=== PATIENT | male | born 1940 | race Caucasian/White ===

== ENCOUNTER 2018-01-05 15:15 | Outpatient (CLI) | payer MEDICARE, OTHER, SELFPAY ==
--- NOTE | 2018-01-05 14:31 | DI.RAD_ITS ---
SYMPTOMS/DIAGNOSIS: COUGH AND LOW O2 SATURATION, J98.01, ACUTE BRONCHOSPASM PA AND LATERAL CHEST: Comparison is made with April,. The heart size is normal. The aorta is tortuous. There is linear scarring at the left lung base. The lungs are otherwise clear. Degenerative changes are seen in the thoracic spine. IMPRESSION: No acute abnormality.
== END 2018-01-05 15:35 ==
PROVIDERS: PCP Family Medicine; Visit Provider Internal Medicine
DX: R05 Cough (principal); J98.01 Acute bronchospasm; R09.89 Other specified symptoms and signs involving the circulatory and respiratory systems
CPT/HCPCS: 71046

== ENCOUNTER 2018-06-03 00:44 | Outpatient (CLI) | payer MEDICARE, OTHER, SELFPAY ==
--- NOTE | 2018-06-03 06:59 | MERGEMPI_ITS ---
*[facility]* *[facility]* [address] [place] [address] Myocardial Perfusion Imaging - SPECT Matt protocol Date of study: 06/03/2018 *PATIENT PRESENTATION* Height: 175.3cm (69in) Blood Pressure: Weight: 80kg (176lb) BSA: 1.99m^2 Referring physician: Richie Cadena Ordering physician: Oscar Tabares Impressions: - Normal myocardial perfusion and contraction after maximal exercise. - In this patient with moderate risk Appiah treadmill score the perfusion scan being normal predicts a low risk of cardiac events. Summary: 1. Myocardial perfusion imaging: No myocardial perfusion defects noted. 2. The calculated left ventricular ejection fraction after stress: 68%. LV global systolic function is normal. No left ventricular regional motion abnormality. 3. Stress ECG conclusions: The stress ECG is negative. Appiah treadmill score: 4. This score predicts a moderate risk of cardiac events. 4. Stress: The target heart rate was achieved. The heart rate response to stress is normal. There is a normal resting blood pressure with an appropriate response to stress. The patient experienced no chest pain during stress. Exercise capacity is moderately diminished for age. 5. Treadmill exercise testing was performed using the Matt protocol. The patient exercised for 4 min 2 sec, to protocol stage 2, to a maximal work rate of 5.9mets. Exercise was terminated due to fatigue. Indication: R06.09, Appropriate Use Criteria: A (Appropriate). History: REASON FOR TESTING: APPROXIMATELY ONE WEEK AGO PATIENT NOTICED INCREASED SOB AT WITH SHOVELING AND CLIMING STAIRS. HE ALSO NOTED SOB UPON WAKING A FEW DAYS AGO. HE DENIES CHEST PAIN/PRESSURE AND SOB UPON ARRIVAL TO TESTING TODAY. SIGNIFICANT PAST MEDICAL HISTORY: GERD. SMOKING STATUS: NEVER. EXERCISE ROUTINE: SWIMS 4 TO 5 TIMES A WEEK FOR 40 MINUTES PER TIME. Risk factors: Family history of coronary artery disease. Dyslipidemia. Cholesterol: 208mg/dl. HDL: 67mg/dl. LDL: 124mg/dl. Triglycerides: 81mg/dl. ALLERGIES: SULFAMETHOXAZOLE, TRIMETHOPRIM. MEDICATIONS: ASPIRIN 81 MG DAILY, VITAMIN D 1000 UNITS DAILY, MULTIVITAMIN DAILY, CALCIUM CARBONATE/VITAMIN D 600 MG/800 UNITS DAILY, VITAMIN B6 50 MG DAILY, LORAZEPAM 1 MG HS, VITAMIN D 1000 UNITS DAILY. Imaging Technique: Protocol: Matt protocol. Acquisition: Gated SPECT; 1 day - rest/stress. The patient was imaged in the supine position. Attenuation correction used. Isotope administration: - Rest. Tc[99m]-sestamibi. Dose: 9.6mCi. Injection time: 08:30 AM. Injection to stress time: 00:45. - Stress. Tc[99m]-sestamibi. Dose: 30.1mCi. Injection time: 11:55 AM. 1-2 min before end of exercise Baseline ECG: SINUS RHYTHM. HR 65 BPM. Normal ECG. Stress protocol: + +---+ + !Stage !HR !BP (mmHg) ! + +---+ + !Baseline supine !65 !120/70 (87)! + +---+ + !Baseline standing !84 !106/70 (82)! + +---+ + !Stage I; 1.7mph, 10degrees; 3 min!128!140/70 (93)! + +---+ + !Peak stress !138! ! + +---+ + !Recovery; 1 min !126!108/54 (72)! + +---+ + !Recovery; 3 min !71 !150/74 (99)! + +---+ + !Recovery; 6 min !75 !130/70 (90)! + +---+ + !Recovery; 9 min !72 !120/68 (85)! + +---+ + * Stress results: STRESS TEST ENDED IN 4 MINUTES 2 SECONDS DUE TO FATIGUE. NORMAL HEART RATE RESPONSE TO EXERCISE. ABNORMAL DROP IN SYSTOLIC BLOOD PRESSURE OF42 mm/Hg UPON IMMEDIATE RECOVERY. MAX HEART RATE: 138 96 % OF TARGET HEART RATE. MET'S: 5.87 RARE PVCs. NO ANGINA. NO SIGNIFICANT ST SEGMENT CHANGES. MODERATELY DIMINISHED FUNCTIONAL CAPACITY. Maximal heart rate during stress was 138bpm (97% of maximal predicted heart rate). The maximal predicted heart rate was 143bpm. The target heart rate was achieved. The heart rate response to stress is normal. There is a normal resting blood pressure with an appropriate response to stress. The rate-pressure product for the peak heart rate and blood pressure was 88004fj Hg/min. The patient experienced no chest pain during stress. Exercise capacity is moderately diminished for age. Stress ECG: The stress ECG is negative. Appiah treadmill score: 4. This score predicts a moderate risk of cardiac events. Myocardial perfusion: Imaging information: gated. The image quality was excellent. Left ventricular size is normal. No myocardial perfusion defects noted. Ventricular Function (Wall Motion): The calculated left ventricular ejection fraction after stress: 68%. LV global systolic function is normal. No left ventricular regional motion abnormality. Study data: Richie Cadena MD supervised and was readily available during the procedure. This study was interpreted by [facility]. Study status: Routine. Consent: The risks, benefits, and alternatives to the procedure were explained to the patient and informed consent was obtained. Procedure: Initial setup. A baseline ECG was recorded. Surface ECG leads and manual cuff blood pressure measurements were monitored. Heart sounds: Normal. Lung sounds: Normal. Treadmill exercise testing was performed using the Matt protocol. The patient exercised for 4 min 2 sec, to protocol stage 2, to a maximal work rate of 5.9mets. Exercise was terminated due to fatigue. Study completion: All catheters inserted during the procedure were removed. The patient tolerated the procedure well and was discharged from the lab. Discharge: The patient left the laboratory in stable condition. Birthdate: Patient birthdate: 1940. Sex: Gender: male. Study date: Study date: 06/03/2018. Study time: 00:01 AM. Signature Documentation: - The imaging portion of this study was interpreted by [employer]or Richie Cadena MD. - The Stress ECG portion of this study was interpreted by Richie Cadena MD. Electronically signed by Richie Cadena 06/03/2018 13:40
== END 2018-06-03 01:04 ==
PROVIDERS: PCP Family Medicine; Visit Provider Family Medicine
DX: R06.02 Shortness of breath (principal); R06.09 Other forms of dyspnea; K21.9 Gastro-esophageal reflux disease without esophagitis; E78.5 Hyperlipidemia, unspecified; Z82.49 Family history of ischemic heart disease and other diseases of the circulatory system
CPT/HCPCS: 78452; 93016; 93018; 93017

== ENCOUNTER 2018-06-05 01:47 | Outpatient (CLI) | payer MEDICARE, OTHER, SELFPAY ==
[2018-06-05 11:22] LABS: HCT 44.3 % (40.0-50.0); HGB 14.5 g/dL (13.5-17.5); Mean Corp. HGB Concentration 32.7 g/dL (32.0-36.0); Mean Corpuscular Hemoglobin 28.9 pg (27.0-33.0); Mean Corpuscular Volume 88.2 fL (80-95); Mean Platelet Volume 10.9 fL (8.0-11.0); Platelet Count 224 x1000/uL (130-400); RBC 5.02 m/cumm (4.50-6.00); RBC Distribution Width 15.1 % (11.8-14.1); White Blood Cell Count 7.09 k/cumm (4.4-10.8)
[2018-06-05 11:42] LABS: Hemoglobin A1C 5.8 % (4.5-6.2)
[2018-06-05 11:54] LABS: Anion Gap 11.1 mmol/L (3-11); BUN 28 mg/dL (7-18); CO2 25.9 mmol/L (21.0-32.0); CREATININE 1.36 mg/dL (0.70-1.30); Calcium 8.8 mg/dL (8.5-10.1); Chloride 105 mmol/L (98-107); Cholesterol 192 mg/dL (50-200); Estimated GFR 50.81 (mL/min/1.73m2); Glucose 100 mg/dL (70-100); HDL Cholesterol 64 mg/dL (40-60); LDL CHOLESTEROL 109 mg/dL (<100); Potassium 4.4 mmol/L (3.5-5.1); Sodium 142 mmol/L (136-145); TSH (W/Ref FT4) 2.56 uIU/mL (0.358-3.74); Triglyceride 78 mg/dL (30-150)
== END 2018-06-05 02:07 ==
PROVIDERS: PCP Family Medicine; Visit Provider Family Medicine
DX: E78.5 Hyperlipidemia, unspecified (principal); R73.01 Impaired fasting glucose; E74.39 Other disorders of intestinal carbohydrate absorption; R00.0 Tachycardia, unspecified
CPT/HCPCS: 36415; 80048; 80061; 83721; 85027; 83036; 84443

== ENCOUNTER 2018-10-08 16:08 | Outpatient (CLI) | payer MEDICARE, OTHER, SELFPAY ==
[2018-10-08 18:41] LABS: ESR 11 MM/HR (1-20)
== END 2018-10-08 16:28 ==
PROVIDERS: PCP Family Medicine; Visit Provider Family Medicine
DX: R51 Headache (principal)
CPT/HCPCS: 36415; 85652

== ENCOUNTER 2018-10-15 00:41 | Outpatient (CLI) | payer MEDICARE, OTHER, SELFPAY ==
--- NOTE | 2018-10-15 13:49 | DI.US_ITS ---
SYMPTOMS/DIAGNOSIS: HEADACHE, R51, NUMBNESS OF RIGHT HAND, R20.0 CAROTID ULTRASOUND: The carotids are free of plaque. Antegrade flow is noted in the vertebrals. The velocity measurements suggest no evidence of significant carotid stenosis.
== END 2018-10-15 01:01 ==
PROVIDERS: PCP Family Medicine; Visit Provider Family Medicine
DX: R20.0 Anesthesia of skin (principal); R51 Headache
CPT/HCPCS: 93880

== ENCOUNTER 2019-04-26 10:11 | Outpatient (CLI) | payer MEDICARE, OTHER, SELFPAY ==
--- NOTE | 2019-04-26 15:19 | DI.RAD_ITS ---
EXAM: XR CHEST 2V PA AND LATERAL CLINICAL HISTORY: PERSISTENT COUGH R05. TECHNIQUE: 2D digital imaging was performed. COMPARISON: XR CHEST 2V PA LATERAL from 01/05/2018 FINDINGS: LUNGS: Clear. No pleural abnormality seen. HEART: Normal. MEDIASTINUM: Normal. OTHER FINDINGS:Normal. IMPRESSION: No acute pulmonary findings.
== END 2019-04-26 10:31 ==
PROVIDERS: PCP Family Medicine; Visit Provider Internal Medicine
DX: R05 Cough (principal)
CPT/HCPCS: 71046

== ENCOUNTER 2019-06-14 13:58 | Outpatient (CLI) | payer MEDICARE, OTHER, SELFPAY | END 2019-06-14 14:18 | PROVIDERS: PCP Family Medicine; Visit Provider Family Medicine | DX: R73.9 Hyperglycemia, unspecified (principal) | CPT/HCPCS: 36415; 83036 ==

== ENCOUNTER 2019-06-15 02:24 | Outpatient (CLI) | payer MEDICARE, OTHER, SELFPAY ==
[2019-06-15 17:07] LABS: ALT 37 U/L (16-63); AST 24 U/L (15-37); Anion Gap 7.8 mmol/L (3-11); BUN 30 mg/dL (7-18); CO2 30.2 mmol/L (21.0-32.0); CREATININE 1.35 mg/dL (0.70-1.30); Calcium 8.7 mg/dL (8.5-10.1); Chloride 106 mmol/L (98-107); Estimated GFR 51.11 (mL/min/1.73m2); Glucose 122 mg/dL (74-106); Potassium 4.1 mmol/L (3.5-5.1); Sodium 144 mmol/L (136-145)
== END 2019-06-15 02:44 ==
PROVIDERS: PCP Family Medicine; Visit Provider Family Medicine
DX: E03.9 Hypothyroidism, unspecified (principal); F34.9 Persistent mood [affective] disorder, unspecified
CPT/HCPCS: 36415; 80048; 84443; 84450; 84460

== ENCOUNTER 2020-02-25 01:52 | Outpatient (CLI) | payer MEDICARE, OTHER, SELFPAY ==
[2020-03-01 16:29] LABS: Factor V Leiden(R506Q) Mut Negative (Negative)
== END 2020-02-25 02:12 ==
PROVIDERS: PCP Family Medicine; Visit Provider Family Medicine
DX: D68.2 Hereditary deficiency of other clotting factors (principal); I87.2 Venous insufficiency (chronic) (peripheral); Z83.2 Family history of diseases of the blood and blood-forming organs and certain disorders involving the immune mechanism
CPT/HCPCS: 36415; 81241

== ENCOUNTER 2020-06-30 02:05 | Outpatient (CLI) | payer MEDICARE, OTHER, SELFPAY ==
[2020-06-30 12:27] LABS: MCH 28.6 pg (27.0-33.0); MCHC 31.8 % (32.0-36.0); MPV 11.1 fL (8.0-11.0); Platelet Count 201 10^3/uL (130-400); RBC 4.89 10^6/uL (4.36-5.78); RDW 14.8 % (11.8-14.1); WBC 7.57 10^3/uL (4.4-10.8)
[2020-06-30 12:39] LABS: ALT 32 U/L (16-63); AST 22 U/L (15-37); Albumin 3.6 g/dL (3.4-5.0); Alkaline Phosphatase 54 U/L (46-116); Anion Gap 6.7 mmol/L (3-11); BUN 27 mg/dL (7-18); Bilirubin, Total 0.4 mg/dL (0.2-1.0); CO2 31.3 mmol/L (21.0-32.0); CREATININE 1.3 mg/dL (0.70-1.30); Calcium 8.6 mg/dL (8.5-10.1); Chloride 108 mmol/L (98-107); Estimated GFR 53.25 (mL/min/1.73m2); Glucose 105 mg/dL (74-106); Potassium 4.2 mmol/L (3.5-5.1); Sodium 146 mmol/L (136-145); Total Protein 6.8 g/dL (6.4-8.2)
== END 2020-06-30 02:06 | disposition home or self-care (01) ==
LOC: LOS 02:05
PROVIDERS: PCP Family Medicine; Visit Provider Family Medicine
DX: D64.9 Anemia, unspecified (principal); R10.9 Unspecified abdominal pain
CPT/HCPCS: 36415; 80053; 85027

== ENCOUNTER 2021-01-31 19:08 | Outpatient (REF) | payer MEDICARE, OTHER, SELFPAY ==
[2021-02-02 12:07] LABS: COVID-19 RT-PCR UVMMC Result Negative (Negative)
== END 2021-01-31 19:09 | disposition home or self-care (01) ==
LOC: LBN 19:08
PROVIDERS: PCP Family Medicine; Visit Provider Nurse Practitioner Family
DX: Z20.822 Contact with and (suspected) exposure to COVID-19 (principal)
CPT/HCPCS: U0003; U0005

== ENCOUNTER 2021-07-11 02:44 | Outpatient (CLI) | payer MEDICARE, SELFPAY ==
[2021-07-11 07:23] LABS: HCT 42.8 % (40.0-50.0); HGB 13.6 g/dL (13.5-17.5); MCH 28.2 pg (27.0-33.0); MCHC 31.8 % (32.0-36.0); MCV 88.8 fL (80-95); MPV 9.6 fL (8.0-11.0); Platelet Count 229 10^3/uL (130-400); RBC 4.82 10^6/uL (4.36-5.78); RDW 14.2 % (11.8-14.1); RDW-SD 46.3 fL; WBC 7.61 10^3/uL (4.4-10.8)
[2021-07-11 08:16] LABS: ALT 30 U/L (16-63); AST 20 U/L (15-37); Albumin 3.8 g/dL (3.4-5.0); Alkaline Phosphatase 55 U/L (46-116); Anion Gap 6.6 mmol/L (3-11); BUN 28 mg/dL (7-18); Bilirubin, Total 0.5 mg/dL (0.2-1.0); CO2 29.4 mmol/L (21.0-32.0); CREATININE 1.5 mg/dL (0.70-1.30); Calcium 8.4 mg/dL (8.5-10.1); Calculated LDL 101 mg/dL (<100); Chloride 103 mmol/L (98-107); Cholesterol 181 mg/dL (<200); Estimated GFR 45.03 (mL/min/1.73m2); Glucose 92 mg/dL (74-106); HDL Cholesterol 65 mg/dL (40-60); Potassium 4.1 mmol/L (3.5-5.1); Sodium 139 mmol/L (136-145); Triglyceride 75 mg/dL (<150)
== END 2021-07-11 02:45 | disposition home or self-care (01) ==
LOC: LBO 02:44
PROVIDERS: PCP Family Medicine; Visit Provider Family Medicine
DX: R53.83 Other fatigue (principal); R10.9 Unspecified abdominal pain; E78.5 Hyperlipidemia, unspecified
CPT/HCPCS: 36415; 80053; 80061; 85027

== ENCOUNTER → 2021-07-20 02:11 | Outpatient (CLI) | payer MEDICARE, SELFPAY ==
--- NOTE | 2021-07-20 10:10 | DI.RAD_ITS ---
Exam(s) RF BARIUM SWALLOW EXAM: RF BARIUM SWALLOW CLINICAL HISTORY: ?? Hiatial Hernia,DYSPHAGIS, GERD TECHNIQUE: 2D and realtime digital imaging was performed. CONTRAST MATERIAL: Oral barium contrast was administered. COMPARISON: No exams were available for comparison FINDINGS: CHEST X-RAY: The heart and pulmonary vasculature are within normal limits. The lungs are clear. No pl eural effusion or pneumothorax is present. The bones are within normal limits for the patient's age. ESOPHAGRAM: The esophagus is patent with no evidence for erosions, fold thickening, or masses. The g astroesophageal junction shows smooth mild narrowing. There is mild dilatation of the esophagus prox imally. No definite mass is seen in this area. There is no irregularity of the wall. Tertiary cont ractions are identified. There was no gastroesophageal reflux. There was penetration during the exa mination but no brad aspiration. IMPRESSION: 1. Question of mild smooth narrowing at the gastroesophageal junction. No wall irregularity or ulcer ation is seen. There is mild dilatation of the esophagus proximally. Achalasia may be considered. Upper GI may be considered for further evaluation. 2. Mild penetration of the upper airway but no brad aspiration was identified during the examination . 3. No evidence of gastroesophageal reflux during the examination. RADIATION DOSE DELIVERED: khadar Miller=22.7 mGy
[2021-07-20] MEDS: Barium Sulfate 60% W/V 355 ML BTL PO (10:24)
[2021-07-20] MEDS: Simethicone/Sod Bicarb/Cit Ac, 4 gram PACKET 1 PACKET PO (10:26)
== END ==
PROVIDERS: PCP Family Medicine; Visit Provider Family Medicine
DX: R13.10 Dysphagia, unspecified (principal)
CPT/HCPCS: 74221; J3490

== ENCOUNTER 2021-07-24 03:14 | Outpatient (CLI) | payer MEDICARE, SELFPAY ==
[2021-07-24 16:20] LABS: Vitamin B12 1292 pg/mL (193-986)
== END 2021-07-24 03:15 | disposition home or self-care (01) ==
LOC: LBO 03:14
PROVIDERS: PCP Family Medicine; Visit Provider Family Medicine
DX: D64.9 Anemia, unspecified (principal)
CPT/HCPCS: 36415; 82607

== ENCOUNTER 2022-04-19 01:37 | Outpatient (CLI) | payer MEDICARE, SELFPAY ==
[2022-04-19] MEDS: Albuterol HFA 18 GM 200 PUFF INH IH (14:27)
[2022-04-19] MEDS: Inhaler, Assist Device 1 EACH MC (14:27)
--- NOTE | 2022-04-30 11:14 | W.PFT ---
Date of service: 04/19/22 Time of Service: 13:02 Pulmonary Function Test Result Requesting Provider Oscar Tabares Indications: GAYLE Interpretation Spirometry: Although the FEV1/FVC ratio is technically normal, airflow limitation is suggested by the flow volume curve and the volume time curve. There is no significant bronchodilator response. There is restrictive appearing spirometry. Lung Volumes: There is significant air trapping and hyperinflation. Diffusion Capacity: Normal diffusion Airway Pressure: Increased airways resistance Impression Likely mild airflow limitation with increased airways resistance, significant air trapping and a normal diffusion. This could represent asthma or early chronic bronchitis in the correct clinical context. The restrictive appearing spirometry is likely pseudo restriction, possibly effort related given the normal lung volumes and diffusion. Clinical Correlation therefore is recommended.
== END 2022-04-19 01:38 | disposition home or self-care (01) ==
LOC: RT 01:37
PROVIDERS: PCP Family Medicine; Visit Provider Family Medicine
DX: R94.2 Abnormal results of pulmonary function studies (principal); R06.09 Other forms of dyspnea; R06.02 Shortness of breath
CPT/HCPCS: 94060; 94726; 94729

== ENCOUNTER 2022-07-26 01:37 | Outpatient (CLI) | payer MEDICARE, SELFPAY ==
[2022-07-26 10:30] LABS: HCT 44.1 % (40.0-50.0); HGB 14.4 g/dL (13.5-17.5); MCH 28.9 pg (27.0-33.0); MCHC 32.7 % (32.0-36.0); MCV 88 fL (80-95); MPV 10.8 fL (8.0-11.0); Platelet Count 241 10^3/uL (130-400); RBC 4.99 10^6/uL (4.36-5.78); RDW 14.3 % (11.8-14.1); RDW-SD 45.9 fL
[2022-07-26 10:53] LABS: Anion Gap 6.9 mmol/L (3-11); BUN 36 mg/dL (7-18); CO2 29.1 mmol/L (21.0-32.0); CREATININE 1.6 mg/dL (0.70-1.30); Calcium 8.9 mg/dL (8.5-10.1); Calculated LDL 103 mg/dL (<100); Chloride 105 mmol/L (98-107); Cholesterol 192 mg/dL (<200); Estimated GFR 42.75 (mL/min/1.73m2); Glucose 112 mg/dL (74-106); HDL Cholesterol 76 mg/dL (40-60); Sodium 141 mmol/L (136-145); Triglyceride 68 mg/dL (<150)
[2022-07-26 12:14] LABS: Lab Add On Test DONE
[2022-07-26 14:46] LABS: Hemoglobin A1C 5.8 % (<5.7)
== END 2022-07-26 01:38 | disposition home or self-care (01) ==
LOC: LOS 01:37
PROVIDERS: PCP Family Medicine; Visit Provider Nurse Practitioner Family
DX: I10 Essential (primary) hypertension (principal); R73.9 Hyperglycemia, unspecified; N28.9 Disorder of kidney and ureter, unspecified; Z79.899 Other long term (current) drug therapy
CPT/HCPCS: 36415; 80048; 80061; 85027; 83036

== ENCOUNTER 2022-08-05 01:24 | Outpatient (CLI) | payer MEDICARE, SELFPAY ==
[2022-08-05 12:24] LABS: PHOSPHORUS 3.7 mg/dL (2.6-4.7)
[2022-08-05 12:49] LABS: Microalb ug/mg Crea 3.1 ug/mg Cr; Vitamin D 25 Total 92.5 ng/mL (30-100)
[2022-08-05 22:57] LABS: Parathyroid Hormone,Intact 45 pg/mL (19-88)
== END 2022-08-05 01:25 | disposition home or self-care (01) ==
LOC: LOS 01:24
PROVIDERS: PCP Family Medicine; Visit Provider Family Medicine
DX: E11.22 Type 2 diabetes mellitus with diabetic chronic kidney disease; N18.32 Chronic kidney disease, stage 3b
CPT/HCPCS: 36415; 82306; 82043; 82570; 83735; 83970; 84100

== ENCOUNTER 2023-01-29 08:11 | Outpatient (CLI) | payer MEDICARE, SELFPAY ==
[2023-01-29 10:38] LABS: HCT 44.4 % (40.0-50.0); HGB 14.6 g/dL (13.5-17.5); MCH 28.9 pg (27.0-33.0); MCHC 32.9 % (32.0-36.0); MCV 88 fL (80-95); MPV 10.6 fL (8.0-11.0); Platelet Count 266 10^3/uL (130-400); RBC 5.05 10^6/uL (4.36-5.78); RDW 14.3 % (11.8-14.1); RDW-SD 45.7 fL; WBC 9.77 10^3/uL (4.4-10.8)
[2023-01-29 10:56] LABS: ALT 31 U/L (16-63); AST 25 U/L (15-37); Albumin 3.7 g/dL (3.4-5.0); Alkaline Phosphatase 60 U/L (46-116); Anion Gap 9.1 mmol/L (3-11); BUN 34 mg/dL (7-18); Bilirubin, Total 0.3 mg/dL (0.2-1.0); CO2 25.9 mmol/L (21.0-32.0); CREATININE 1.3 mg/dL (0.70-1.30); Calcium 9.6 mg/dL (8.5-10.1); Chloride 103 mmol/L (98-107); Estimated GFR 54.85 (mL/min/1.73m2); Glucose 112 mg/dL (74-106); Potassium 4.1 mmol/L (3.5-5.1); Sodium 138 mmol/L (136-145); Total Protein 7.7 g/dL (6.4-8.2)
== END 2023-01-29 08:12 | disposition home or self-care (01) ==
LOC: LOS 08:12
PROVIDERS: PCP Family Medicine; Referring Provider Family Medicine; Visit Provider Family Medicine
DX: N18.32 Chronic kidney disease, stage 3b (principal); I10 Essential (primary) hypertension; G62.9 Polyneuropathy, unspecified; F41.8 Other specified anxiety disorders
CPT/HCPCS: 36415; 80053; 85027

== ENCOUNTER → 2023-01-29 10:26 | Outpatient (CLI) | payer MEDICARE, SELFPAY ==
--- NOTE | 2023-01-29 09:15 | DI.RAD_ITS ---
Exam(s) XR CHEST 2V PA LATERAL EXAM: XR CHEST 2V PA LATERAL CLINICAL HISTORY: recent pneumonia - eval for resolution J18.9 PNEUMONIA. TECHNIQUE: 2D digital imaging was performed. COMPARISON: CR,RF RF BARIUM SWALLOW from 07/20/2021 FINDINGS: 2 views: Heart size is normal. The mediastinum is not widened. Lungs are clear. No infiltrates nor pleural effusions. IMPRESSION: No acute pulmonary findings. DATA REPOSITORY: RADIATION DOSE DELIVERED:
== END ==
PROVIDERS: PCP Family Medicine; Visit Provider Family Medicine
DX: J18.9 Pneumonia, unspecified organism (principal)
CPT/HCPCS: 71046

== ENCOUNTER 2023-07-29 04:53 | Outpatient (CLI) | payer MEDICARE, SELFPAY ==
[2023-07-29 12:29] LABS: ALT 34 U/L (16-63); AST 25 U/L (15-37); Albumin 3.6 g/dL (3.4-5.0); Alkaline Phosphatase 56 U/L (46-116); Anion Gap 7.9 mmol/L (3-11); BUN 35 mg/dL (7-18); Bilirubin, Total 0.4 mg/dL (0.2-1.0); CO2 29.1 mmol/L (21.0-32.0); CREATININE 1.3 mg/dL (0.70-1.30); Calcium 8.7 mg/dL (8.5-10.1); Chloride 107 mmol/L (98-107); Estimated GFR 54.51 (mL/min/1.73m2); Glucose 76 mg/dL (74-106); Potassium 3.9 mmol/L (3.5-5.1); Sodium 144 mmol/L (136-145); Total Protein 7.3 g/dL (6.4-8.2)
== END 2023-07-29 04:54 | disposition home or self-care (01) ==
LOC: LOS 04:53
PROVIDERS: PCP Family Medicine; Visit Provider Family Medicine
DX: Z00.00 Encounter for general adult medical examination without abnormal findings (principal); N18.32 Chronic kidney disease, stage 3b
CPT/HCPCS: 36415; 80053

== ENCOUNTER 2023-09-16 13:24 | Outpatient (CLI) | payer MEDICARE, SELFPAY ==
[2023-09-17 18:53] LABS: PSA, Screening 2.6 ng/mL (<=6.5)
== END 2023-09-16 13:25 | disposition home or self-care (01) ==
LOC: LBO 09-17 13:26
PROVIDERS: PCP Family Medicine; Visit Provider Family Medicine
DX: Z12.5 Encounter for screening for malignant neoplasm of prostate (principal); N40.0 Benign prostatic hyperplasia without lower urinary tract symptoms
CPT/HCPCS: 36415; 84153

== ENCOUNTER → 2023-10-07 04:15 | Outpatient (CLI) | payer MEDICARE, SELFPAY ==
--- NOTE | 2023-10-06 15:15 | DI.RAD_ITS ---
Exam(s) XR THORACIC SPINE COMPLETE EXAM: XR THORACIC SPINE COMPLETE CLINICAL HISTORY: loss of height, kyphosis, R29.890, M40.209. TECHNIQUE: 2D digital imaging was performed. COMPARISON: No exams were available for comparison FINDINGS: 3 views No evidence of fracture or listhesis. Multilevel disc space narrowing is noted in the upper thoracic spine. There is a mild convex right scoliosis noted in the thoracic spine. No scoliosis noted in t he partially visualized upper lumbar spine. No abnormal widening of the paraspinal lines. IMPRESSION: Multilevel degenerative disc changes. Mild thoracic level scoliosis. DATA REPOSITORY: RADIATION DOSE DELIVERED:
== END ==
PROVIDERS: PCP Family Medicine; Visit Provider Family Medicine
DX: R29.890 Loss of height (principal); M40.204 Unspecified kyphosis, thoracic region; M51.34 Other intervertebral disc degeneration, thoracic region
CPT/HCPCS: 72072

== ENCOUNTER 2024-04-02 00:25 | Outpatient (CLI) | payer MEDICARE, SELFPAY ==
--- NOTE | 2024-04-02 07:30 | DI.MRI_ITS ---
Exam(s) MR CERVICAL SPINE WO EXAM: MR CERVICAL SPINE WO CLINICAL HISTORY: right arm /chest nerve pain,RT CERVICAL RADICULOPATHY,KYPHOSIS,M54.12 TECHNIQUE: Multiplanar multisequence MRI of the cervical spine was performed without intravenous con trast. COMPARISON: MR MRI - CERVICAL SPINE WO CONT from 02/22/2010 CR XR THORACIC SPINE COMPLETE from 10/06/2023 FINDINGS: BONES: Multilevel degenerative changes are seen throughout the cervical spine characterized by joint space narrowing and endplate osteophytes. Endplate degenerative signal changes are seen, particularl y at C6-C7. Alignment is normal. CERVICAL CORD: Craniovertebral junction is unremarkable. The cervical cord is normal size and signal intensity. SOFT TISSUES: Unremarkable. C2-3: No disc herniation or bulge is identified. No significant central spinal canal or neural forami nal stenosis. C3-4: There is a small central disc herniation. There is effacement of the anterior subarachnoid spa ce. No significant central spinal canal stenosis or cord compression is seen. No significant centra l spinal canal or neural foraminal stenosis C4-5: No disc herniation or bulge is identified. No significant central spinal canal stenosis. There is moderate right neural foraminal stenosis. C5-6: There is prominence of the osteophyte disc complex. No significant central spinal canal stenos is is seen. Mild right and moderate left neural foraminal stenosis is present. C6-7: There is prominence of the osteophyte disc complex eccentric to the left. No significant centr al spinal canal stenosis is seen. There is mild right and moderate left neural foraminal stenosis. Left uncovertebral joint degenerative changes are seen. C7-T1: There is mild prominence of the osteophyte disc complex. There is extension into the neural f oramen bilaterally. This causes mild bilateral neural foraminal stenosis. No significant central sp inal canal stenosis. 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 DATA REPOSITORY:
== END 2024-04-02 00:45 ==
LOC: DI 00:25
PROVIDERS: PCP Family Medicine; Visit Provider Family Medicine
DX: M48.062 Spinal stenosis, lumbar region with neurogenic claudication (principal)
CPT/HCPCS: 72141

== ENCOUNTER 2024-08-15 18:13 | Emergency (ER) | payer MEDICARE, SELFPAY ==
[2024-08-15 18:22] VITALS: BP 129/57; PULSE 92; RESP 16; TEMP 36.4; O2SAT 95
--- NOTE | 2024-08-15 19:24 | W.ED.GENAD ---
Discharge Plan Disposition Patient Disposition: Against Medical Advice Condition: Stable Discharge Details Clinical Impression: Leg swelling, Cellulitis Primary Care Provider: Oscar Tabares ED Provider: Luanne Villarreal Home Meds and New Rx's Prescriptions: New cephalexin 500 mg capsule 500 mg PO QID 10 Days Qty: 40 0RF Continued (DME) cpap equipment See Rx Instructions .Route .MEDSUPPLY Qty: 1 0RF Rx Instructions: As directed - all necessary equipment for CPAP device -- fax to [facility] - phone [phone] Lumigan 0.01 % drops 1 drp OP DAILY quetiapine 100 mg tablet 100 mg PO DAILY Qty: 90 3RF tranylcypromine 10 mg tablet 30 mg PO DAILY Qty: 270 3RF guaifenesin [Mucinex] 600 mg tablet extended release 12hr 600 mg PO DAILY multivitamin 1 EACH tablet 1 ea PO DAILY calcium carbonate-vitamin D3 1 EACH tablet 1 ea PO DAILY c-pap tamsulosin 0.4 mg capsule 0.4 mg PO HS Qty: 90 3RF lorazepam 0.5 mg tablet 0.5 mg PO QHS Patient Comments: TAKE ONE TABLET BY MOUTH AT BEDTIME Discharge Instructions Instructions: Cellulitis (Skin Infection), Adult ED Additional Instructions: We are not certain what is causing your symptoms- it may be an infection or it may be a blood clot. Your kidney function is worse than usual and this can be a sign of life threatening infection. I would like you to remain in the hospital but you have chosen to leave against medical advice. Please return to the emergency department if your symptoms worsen or if you change your mind. In the meantime, take the antibiotic 4 times a day for the next 10 days. Call your primary care doctor first thing in the morning to schedule an appointment to be seen as soon as possible, no later than 48 hours, to followup on your visit here. You need to have an ultrasound tomorrow to see if you have a blood clot because this can lead to life threatening complications like blood clot in your lungs and . Radiology should call you in the morning to schedule the ultrasound. If you do not hear from them by 10am please call [phone] to schedule the scan. After you have the ultrasound please come back to the emergency department so we can go over the results and discuss starting you on a blood thinner if necessary. Referrals: Oscar Tabares MD [Primary Care Provider] - Discharge Orders Other Ambulatory Orders: US lower extremity venous RT (Routine) Timeframe: 1 Day Facility: [facility] - Location: DIAGNOSTIC IMAGING Ordered By: Luanne Villarreal [facility] General Mode of arrival: ambulatory. Date/Time Provider Initiated Documentation: 08/15/24 18:29. Limitations to Documentation: no limitations. Information obtained by: patient. HPI Narrative: 84yo M with hx asthma, BPH, family hx of FVL but no personal history of clotting disorder or prior DVT/PE, presenting for right leg pain. Symptoms started yesterday around 4pm while ambualting, pain behind his right knee and into his calf, feels 'like a cramp'. Thinks the leg may be more warm and a little red than the left. Temp of 99.0F at home and has felt chills. No shortness of breath, cough, chest pain, numbness/tingling in RLE, weakness, or other concerns. Related Data Home Medications ?Medication ?Instructions ?Recorded ?Confirmed multivitamin 1 ea PO DAILY 01/05/13 08/15/24 calcium 600 mg (as 1 ea PO DAILY 05/14/16 08/15/24 carbonate)-vitamin D3 5 mcg (200 unit) tablet C-Pap 09/19/17 03/24/24 bimatoprost 0.01 % eye drops 1 drp ophthalmic (eye) DAILY 12/22/18 08/15/24 (Lumigan) cpap equipment #1 ea 01/29/23 08/15/24 quetiapine 100 mg tablet 100 mg PO DAILY #90 tabs 08/08/23 08/15/24 tranylcypromine 10 mg tablet 30 mg (3 x 10 mg) PO DAILY #270 08/08/23 08/15/24 tabs guaifenesin 600 mg tablet, 600 mg PO DAILY 11/26/23 08/15/24 extended release 12 hr (Mucinex) tamsulosin 0.4 mg capsule 0.4 mg PO HS #90 caps 03/15/24 08/15/24 cephalexin 500 mg capsule 500 mg PO QID 10 days #40 caps 08/15/24 lorazepam 0.5 mg tablet 0.5 mg PO QHS 08/15/24 08/15/24 Previous Rx's ?Medication ?Instructions ?Recorded cpap equipment #1 ea 01/29/23 quetiapine 100 mg tablet 100 mg PO DAILY #90 tabs 08/08/23 tranylcypromine 10 mg tablet 30 mg (3 x 10 mg) PO DAILY #270 08/08/23 tabs tamsulosin 0.4 mg capsule 0.4 mg PO HS #90 caps 03/15/24 cephalexin 500 mg capsule 500 mg PO QID 10 days #40 caps 08/15/24 Allergies Allergy/AdvReac Type Severity Reaction Status Date / Time sulfamethoxazole (From AdvReac Mild nausea Verified 08/15/24 18:28 Bactrim) trimethoprim (From Bactrim) AdvReac Mild nausea Verified 08/15/24 18:28 General Stated Complaint: Orthopedic CATIE: 4 Review of Systems Narrative: see HPI Exam Narrative Exam Narrative: General: Alert, well appearing, well nourished, in no acute distress. Head: Normocephalic, atraumatic Neck: Trachea midline, ?Neck supple. Cardiac: ?RRR, no murmurs appreciated Resp: No respiratory distress. CTAB. Abd: ?Soft, non-distended, nontender Neurologic: GCS 15. ? Moves all extremities freely against gravity Extremities: ?RLE with patchy areas of warmth and erythema throughout; medial thigh (does not extend to scrotum), much of calf/leg, foot, 2nd/3rd/4th digits. Good PT and DP pulse, brisk capillary refill. Sensation intact throughout. No crepitus. Anterior and posterior calf tender to palpation. Minimal calf swelling, Right calf 37cm in diameter. Left calf 35cm in diameter. Course Vital Signs Vital signs: Vital Signs Temperature 36.4 C 08/15/24 18:22 Pulse 92 H 08/15/24 18:22 Respiratory Rate 16 08/15/24 18:22 Blood Pressure 129/57 L 08/15/24 18:22 Pulse Oximetry 95 08/15/24 18:22 Temperature 36.4 C 08/15/24 18:22 Temperature Source Oral 08/15/24 18:22 Pulse 92 H 08/15/24 18:22 Respiratory Rate 16 08/15/24 18:22 Blood Pressure 129/57 L 08/15/24 18:22 Blood Pressure Position Sitting 08/15/24 18:22 Pulse Oximetry 95 08/15/24 18:22 Oxygen Delivery Method Room Air 08/15/24 18:22 Oxygen Flow Rate 0 08/15/24 18:22 Pain Level 7 08/15/24 18:22 Medical Decision Making 84yo M with hx asthma, BPH, family hx of FVL but no personal history of clotting disorder or prior DVT/PE, presenting for right leg pain onset yesterday around 4pm while ambulating. Subjective fever and temp of 99F at home. Vital signs reassuring on arrival. Well appearing. Not overtly septic. On exam he has patchy areas of warmth and erythema suggestive of cellulitis. No indication of nec fasc. Wells score for DVT -2, low risk. Will send dimer. No symptoms to suggest pulmonary embolism. Will treat empirically initially with dose of IV ceftriaxone while awaiting results of workup. Labs reviewed as below, CBC with leukocytosis to 16 with neutrophilia (nonspecific but supportive of infection), CMP with newly elevated Cr at 2.1 (baseline appears 1.3-1.6 on [facility] record review), dimer elevated. On reassessment patient remains well appearing. Remains uncertain whether presentation is 2/t infection vs DVT. Discussed with patient results including positive dimer with need for ultrasound (unable to get at [facility] tonight, will need to be tomorrow morning). Risks/benefits of empiric anticoagulation until ultrasound performed was discussed; refused empiric anticoagulation however would be willing to start if ultrasound is positive for DVT. I am also concerned about his worsening kidney function in the setting of likely infection and we discussed hospital observation for IVF, IV antibiotics, blood cultures and repeat bloodwork especially given that his symptoms have progressed significantly over the past 24 hours. He is adamantly opposed to remaining in the hospital or having additional phlebotomy. He is able to verbalize understanding of the risks including worsening infection, sepsis, and or permanent disability; states he does not like hospitals, feels well overall all, and wants to go home. He has decision making capacity and is willing to return if he feels worse. After further discussion he did agree to a liter of IVF here with a repeat Cr drawn from IV. 1L IVB given. After completion of IVF patient stated he was going to leave. He is not willing to wait for the Cr result. I have no indication to hold him against his will. I reviewed again the risks of leaving including progressive infection, kidney damage, untreated DVT progressing to pulmonary embolism, disability, and . He again verbalized understanding of these concerns and stated he wanted to leave. 10 day course of keflex sent for cellulitis, outpatient ultrasound order placed. Left AMA; discharge instructions and return precautions were reviewed with patient who verbalized understanding. All questions were answered. After pt discharge, rpt Cr resulted at 2.0 (stable). Lab Data Lab results reviewed: Yes I reviewed the patient's lab results. Labs: Laboratory Tests Range/Units 08/15/24 08/15/24 20:02 22:18 WBC (4.4-10.8) 10^3/uL 16.78 H RBC (4.36-5.78) 10^6/uL 4.89 Hgb (13.5-17.5) g/dL 14.3 Hct (40.0-50.0) % 43.9 MCV (80-95) fL 90 MCH (27.0-33.0) pg 29.2 MCHC (32.0-36.0) % 32.6 RDW (11.8-14.1) % 14.5 H Plt Count (130-400) 10^3/uL 185 MPV (8.0-11.0) fL 10.7 Immature Gran % % 0.7 Neutrophils % % 88.9 Lymphocytes % % 6.6 Monocytes % % 3.3 Eosinophils % % 0.1 Basophils % % 0.4 Nucleated RBC % (0.0-0.3) % 0.0 Absolute Neutrophils (1.2-6.7) 10^3/uL 14.92 H Absolute Lymphocytes (1.2-3.4) 10^3/uL 1.11 L Absolute Monocytes (0.1-0.8) 10^3/uL 0.55 Absolute Eosinophils (0.0-0.7) 10^3/uL 0.02 Absolute Basophils (0.0-0.2) 10^3/uL 0.07 D-Dimer (<500) ng/mlFEU 1092 H Sodium (136-145) mmol/L 135 L Potassium (3.5-5.1) mmol/L 3.9 Chloride (98-107) mmol/L 99 Carbon Dioxide (21.0-32.0) mmol/L 25.7 Anion Gap (3-11) mmol/L 10.3 BUN (7-18) mg/dL 36 H Creatinine (0.70-1.30) mg/dL 2.1 H 2.0 H Est GFR (CKD-EPI 2020) (mL/min/1.73m2) 30.47 32.30 Glucose (74-106) mg/dL 102 Calcium (8.5-10.1) mg/dL 9.2 Total Bilirubin (0.2-1.0) mg/dL 0.8 AST (15-37) U/L 31 ALT (16-63) U/L 31 Alkaline Phosphatase (46-116) U/L 57 Total Protein (6.4-8.2) g/dL 8.0 Albumin (3.4-5.0) g/dL 3.7 Quality:SDOH Health Related Social Needs: No Data to Display PFSH All Active Problems (Updated 08/15/24 @ 22:25 by Luanne Villarreal MD) Cellulitis (Acute) Leg swelling (Acute) Right leg swelling (Acute) Right cervical radiculopathy (Acute) Kyphosis (acquired) (postural) (Acute) CKD stage 3a, GFR 45-59 ml/min (Acute) Impacted cerumen, bilateral (Acute) Hyperglycemia (Acute) Asthma (Chronic) declines using symbicort due to difficulty with it changing his singing. Sensorineural hearing loss (SNHL) of both ears (Acute) Callus of foot (Acute) Polyneuropathy (Acute) Bilateral tinnitus (Acute) Persistent mood disorder (Chronic) Essential hypertension (Acute 06/30/13) Anxiety (Chronic) Patient is made aware that we can only give 6 months of refills at one time for benzodiazepines RAMON (obstructive sleep apnea) (Acute 06/12/17) SEVERE;06/10/17;[facility] Meralgia paresthetica of left side (Acute 07/22/17) Irritable bowel syndrome (Acute 04/29/14) Depressive disorder (Acute) anxiety managed by Dr. Hollis - once monthly. Degenerative arthritis of lumbar spine (Acute 04/29/14) Benign prostatic hyperplasia (Acute 04/16/13) sees Dr Mandel Medical History (Updated 08/15/24 @ 22:25 by Luanne Villarreal MD) Family history of coagulation disorder Trigger finger, left index finger Scrotal lesion ? 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) Elevated sed rate (05/02/15) temporal artery bx neg Diverticula of colon (10/08/16) IBS (irritable bowel syndrome) Depressive disorder GERD (gastroesophageal reflux disease) Umbilical hernia Cervical radiculopathy Surgical History (Updated 07/19/22 @ 11:10 by Jazmine Hernandez MD) Status post hernia repair (12/23/13) Trigger Finger release 09/2014 Repair of inguinal hernia LEFT Right X2 Colonoscopy - MAC (10/08/16) Family History Mother , 94 Essential hypertension Heart disease ASHD Father , 62 Rectal cancer Sister Essential hypertension Depression Brother Essential hypertension Hyperlipidemia Depression Maternal Grandfather No problems noted. Paternal Grandfather No problems noted. Maternal Grandmother No problems noted. Paternal Grandmother No problems noted. Son No problems noted. Daughter No problems noted. Social History (Updated 07/31/22 @ 10:41 by Jazmine Hernandez MD) Smoking/Tobacco Use Status: Never Second Hand Exposure: Yes Smoking risk assessment performed?: Yes Alcohol Intake: never Drug use: Never Substance use type: does not use Caregiver/Support person: No Household members: significant other and other Details: Danika Perez is significant other Housing: house Number of Children: 2 number of grandchildren: 2 Communication Needs: Corrective Lenses Do you need help understanding health information?: Rarely current occupation: MUSICIAN Pets and animals: No Sexually active: No Do you think of yourself as: straight/heterosexual Current gender identity: male What is your relationship status?: living with partner How often do you talk on the phone with friends or family?: twice per week How often do you get together with friends or relatives?: never How often do you attend confucianist or spiritism services?: 4 or more times per year Do you belong to any clubs or organized social groups?: no Panel score (0-1 are the most socially isolated patients): 2 What type of physical activity do you participate in: walking Duration: 30-45 minutes/day Frequency: daily Olga/Scientology: YAZIDI Special olga needs: No Seatbelt use: always Drive intox or ride w/intox charter driver: No Do you feel safe at home: Yes Do you feel safe in your relationship?: Yes
[2024-08-15] MEDS: cefTRIAXone 1 GM/50 ML BAG IVPB (20:03)
[2024-08-15 20:13] LABS: Abs Immature Grans 0.12 10^3/uL (0.0-0.06); Absolute Basophil Count 0.07 10^3/uL (0.0-0.2); Absolute Monocyte Count 0.55 10^3/uL (0.1-0.8); Basophils % 0.4 %; Eosinophils % 0.1 %; HCT 43.9 % (40.0-50.0); HGB 14.3 g/dL (13.5-17.5); Immature Grans % 0.7 %; Lymphocytes % 6.6 %; MCH 29.2 pg (27.0-33.0); MCHC 32.6 % (32.0-36.0); MCV 90 fL (80-95); MPV 10.7 fL (8.0-11.0); Monocytes % 3.3 %; Neutrophils % 88.9 %; Platelet Count 185 10^3/uL (130-400); RBC 4.89 10^6/uL (4.36-5.78); RDW 14.5 % (11.8-14.1); RDW-SD 47.5 fL; WBC 16.78 10^3/uL (4.4-10.8)
[2024-08-15 20:14] LABS: Absolute Eosinophil Count 0.02 10^3/uL (0.0-0.7); Absolute Lymphocyte Count 1.11 10^3/uL (1.2-3.4); Absolute Neutrophil Count 14.92 10^3/uL (1.2-6.7)
[2024-08-15 20:30] VITALS: BP 120/78; PULSE 90; RESP 16; O2SAT 97
[2024-08-15 20:31] LABS: ALT 31 U/L (16-63); AST 31 U/L (15-37); Albumin 3.7 g/dL (3.4-5.0); Alkaline Phosphatase 57 U/L (46-116); Anion Gap 10.3 mmol/L (3-11); BUN 36 mg/dL (7-18); Bilirubin, Total 0.8 mg/dL (0.2-1.0); CO2 25.7 mmol/L (21.0-32.0); CREATININE 2.1 mg/dL (0.70-1.30); Calcium 9.2 mg/dL (8.5-10.1); Chloride 99 mmol/L (98-107); Estimated GFR 30.47 (mL/min/1.73m2); Glucose 102 mg/dL (74-106); Potassium 3.9 mmol/L (3.5-5.1); Sodium 135 mmol/L (136-145)
[2024-08-15 20:40] LABS: D-Dimer 1092 ng/mlFEU (<500)
[2024-08-15] MEDS: Normal Saline 1,000 ML 1000 ML IV (21:13)
[2024-08-15 21:16] VITALS: BP 140/63; PULSE 90; RESP 16
--- NOTE | 2024-08-15 22:48 | NUR.NOTE ---
Patient left against medical advice at 2234 because he would like to return to his family and that he would find out the results in the morning.
--- NOTE | 2024-08-16 10:16 | NUR.NOTE ---
Patient called stating prescription was not at [facility] in [place]. On discharge, it was sent to [facility] and per [facility] we need to cancel the one from [facility] and then call in to them. Jaqueline Moya, monorail charger operator cancelled the prescription and then called in to [facility]. I called the patient and he is aware that he can pick it up at [facility] today. Nursing Note:
--- NOTE | 2024-08-16 14:29 | NUR.NOTE ---
Patient requested copies of labs and radiology reports. Copied and given to him. Nursing Note:
== END 2024-08-15 20:31 | disposition left against medical advice (07) ==
PROVIDERS: Emergency Provider Student in an Organized Health Care Education/Training Program; PCP Family Medicine
DX: M79.604 Pain in right leg (principal); L03.115 Cellulitis of right lower limb; R22.41 Localized swelling, mass and lump, right lower limb
CPT/HCPCS: 36415; 80053; 96361; 96365; 99284; 82565; 85025; 85379; J0696

== ENCOUNTER 2024-08-16 11:21 | Outpatient (CLI) | payer MEDICARE, SELFPAY ==
--- NOTE | 2024-08-16 11:15 | DI.US_ITS ---
Exam(s) US LOWER EXTREMITY VENOUS RT EXAM: US LOWER EXTREMITY VENOUS RT CLINICAL HISTORY: RLE swelling, + dimer, M79.89 TECHNIQUE: Right lower extremity venous ultrasound performed using grayscale, color-flow, and spectr al Doppler analysis. COMPARISON: No exams were available for comparison FINDINGS: The right common femoral, femoral and popliteal veins demonstrate normal compressibility, augmentatio n, and color Doppler. The posterior tibial and peroneal veins are patent. The saphenofemoral junctio n is unremarkable. There is no evidence of a Price cyst. The soft tissues are unremarkable. IMPRESSION: No evidence of a right lower extremity DVT. DATA REPOSITORY:
== END 2024-08-16 11:41 ==
LOC: DI 11:22
PROVIDERS: PCP Family Medicine; Visit Provider Student in an Organized Health Care Education/Training Program
DX: M79.89 Other specified soft tissue disorders (principal)
CPT/HCPCS: 93971

== ENCOUNTER 2024-08-16 13:45 | Emergency (ER) | payer MEDICARE, SELFPAY ==
[2024-08-16 13:47] VITALS: BP 122/72; PULSE 87; RESP 15; TEMP 36.3; O2SAT 97
--- NOTE | 2024-08-16 13:50 | W.ED.GENAD ---
Discharge Plan Disposition Patient Disposition: Home Condition: Stable Discharge Details Clinical Impression: Encounter to discuss x-ray results Primary Care Provider: Oscar Tabares ED Provider: Analia Corcoran Home Meds and New Rx's Prescriptions: Continued (DME) cpap equipment See Rx Instructions .Route .MEDSUPPLY Qty: 1 0RF Rx Instructions: As directed - all necessary equipment for CPAP device -- fax to [facility] - phone [phone] Lumigan 0.01 % drops 1 drp OP DAILY quetiapine 100 mg tablet 100 mg PO DAILY Qty: 90 3RF tranylcypromine 10 mg tablet 30 mg PO DAILY Qty: 270 3RF guaifenesin [Mucinex] 600 mg tablet extended release 12hr 600 mg PO DAILY multivitamin 1 EACH tablet 1 ea PO DAILY calcium carbonate-vitamin D3 1 EACH tablet 1 ea PO DAILY c-pap tamsulosin 0.4 mg capsule 0.4 mg PO HS Qty: 90 3RF lorazepam 0.5 mg tablet 0.5 mg PO QHS Patient Comments: TAKE ONE TABLET BY MOUTH AT BEDTIME cephalexin 500 mg capsule 500 mg PO QID 10 Days Qty: 40 0RF Discharge Instructions Instructions: Swelling Additional Instructions: No evidence of DVT or blood clot on the ultrasound today. Follow up with primary care provider in 3-5 days. Return to ED sooner if any worsening or concerns. Thank you for allowing us to care for you today. Referrals: Oscar Tabares MD [Primary Care Provider] - Return if symptoms worsen HPI General Mode of arrival: ambulatory. Date/Time Provider Initiated Documentation: 08/16/24 13:50. Limitations to Documentation: no limitations. Information obtained by: patient, RN notes reviewed and old records reviewed. HPI Narrative: Spoke with patient is an 84-year-old male presents for ultrasound results. Patient had a right lower extremity venous Doppler to rule out DVT. This is negative. He has no complaints or further associated symptoms. He does have a past medical history of GERD depression IBS venous insufficiency Related Data Home Medications ?Medication ?Instructions ?Recorded ?Confirmed multivitamin 1 ea PO DAILY 01/05/13 08/16/24 calcium 600 mg (as 1 ea PO DAILY 05/14/16 08/16/24 carbonate)-vitamin D3 5 mcg (200 unit) tablet C-Pap 09/19/17 03/24/24 bimatoprost 0.01 % eye drops 1 drp ophthalmic (eye) DAILY 12/22/18 08/16/24 ([facility]) cpap equipment #1 ea 01/29/23 08/16/24 quetiapine 100 mg tablet 100 mg PO DAILY #90 tabs 08/08/23 08/16/24 tranylcypromine 10 mg tablet 30 mg (3 x 10 mg) PO DAILY #270 08/08/23 08/16/24 tabs guaifenesin 600 mg tablet, 600 mg PO DAILY 11/26/23 08/16/24 extended release 12 hr (Mucinex) tamsulosin 0.4 mg capsule 0.4 mg PO HS #90 caps 03/15/24 08/16/24 cephalexin 500 mg capsule 500 mg PO QID 10 days #40 caps 08/15/24 08/16/24 lorazepam 0.5 mg tablet 0.5 mg PO QHS 08/15/24 08/16/24 Previous Rx's ?Medication ?Instructions ?Recorded cpap equipment #1 ea 01/29/23 quetiapine 100 mg tablet 100 mg PO DAILY #90 tabs 08/08/23 tranylcypromine 10 mg tablet 30 mg (3 x 10 mg) PO DAILY #270 08/08/23 tabs tamsulosin 0.4 mg capsule 0.4 mg PO HS #90 caps 03/15/24 cephalexin 500 mg capsule 500 mg PO QID 10 days #40 caps 08/15/24 Allergies Allergy/AdvReac Type Severity Reaction Status Date / Time sulfamethoxazole (From AdvReac Mild nausea Verified 08/16/24 13:55 Bactrim) trimethoprim (From Bactrim) AdvReac Mild nausea Verified 08/16/24 13:55 General CATIE: 4 Exam Const General: cooperative Nutritional Appearance: average body habitus Orientation: alert, awake and oriented x3 Eyes General: appearance normal, both eyes and all related structures Alignment and Position: alignment normal Resp Effort & Inspection: normal respiratory effort Medical Decision Making Spoke with patient is an 84-year-old male presents for ultrasound results. Patient had a right lower extremity venous Doppler to rule out DVT. This is negative. He has no complaints or further associated symptoms. He does have a past medical history of GERD depression IBS venous insufficiency Discussed ultrasound results with patient he is requesting printout of labs and radiology report. This text was generated using [employer] dictation system, please disregard any oddities of phrase or misspellings. Imaging Data Radiologic Study: Imaging: Ultrasound Radiologist's impression: Exam(s) US LOWER EXTREMITY VENOUS RT EXAM: US LOWER EXTREMITY VENOUS RT CLINICAL HISTORY: RLE swelling, + dimer, M79.89 TECHNIQUE: Right lower extremity venous ultrasound performed using grayscale, color-flow, and spectral Doppler analysis. COMPARISON: No exams were available for comparison FINDINGS: The right common femoral, femoral and popliteal veins demonstrate normal compressibility, augmentation, and color Doppler. The posterior tibial and peroneal veins are patent. The saphenofemoral junction is unremarkable. There is no evidence of a Price cyst. The soft tissues are unremarkable. IMPRESSION: No evidence of a right lower extremity DVT. Quality:SDOH Health Related Social Needs: No Data to Display PFSH All Active Problems (Updated 08/16/24 @ 14:05 by Analia Corcoran NP) Encounter to discuss x-ray results (Acute) Cellulitis (Acute) Leg swelling (Acute) Right leg swelling (Acute) Right cervical radiculopathy (Acute) Kyphosis (acquired) (postural) (Acute) CKD stage 3a, GFR 45-59 ml/min (Acute) Impacted cerumen, bilateral (Acute) Hyperglycemia (Acute) Asthma (Chronic) declines using symbicort due to difficulty with it changing his singing. Sensorineural hearing loss (SNHL) of both ears (Acute) Callus of foot (Acute) Polyneuropathy (Acute) Bilateral tinnitus (Acute) Persistent mood disorder (Chronic) Essential hypertension (Acute 06/30/13) Anxiety (Chronic) Patient is made aware that we can only give 6 months of refills at one time for benzodiazepines RAMON (obstructive sleep apnea) (Acute 06/12/17) SEVERE;06/10/17;[facility] Meralgia paresthetica of left side (Acute 07/22/17) Irritable bowel syndrome (Acute 04/29/14) Depressive disorder (Acute) anxiety managed by Dr. Hollis - once monthly. Degenerative arthritis of lumbar spine (Acute 04/29/14) Benign prostatic hyperplasia (Acute 04/16/13) sees Dr Mandel Medical History (Updated 08/16/24 @ 14:05 by Analia Corcoran NP) Family history of coagulation disorder Trigger finger, left index finger Scrotal lesion ? 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) Elevated sed rate (05/02/15) temporal artery bx neg Diverticula of colon (10/08/16) IBS (irritable bowel syndrome) Depressive disorder GERD (gastroesophageal reflux disease) Umbilical hernia Cervical radiculopathy Surgical History (Updated 07/19/22 @ 11:10 by Jazmine Hernandez MD) Status post hernia repair (12/23/13) Trigger Finger release 09/2014 Repair of inguinal hernia LEFT Right X2 Colonoscopy - MAC (10/08/16) Family History Mother , 94 Essential hypertension Heart disease ASHD Father , 62 Rectal cancer Sister Essential hypertension Depression Brother Essential hypertension Hyperlipidemia Depression Maternal Grandfather No problems noted. Paternal Grandfather No problems noted. Maternal Grandmother No problems noted. Paternal Grandmother No problems noted. Son No problems noted. Daughter No problems noted. Social History (Updated 07/31/22 @ 10:41 by Jazmine Hernandez MD) Smoking/Tobacco Use Status: Never Second Hand Exposure: Yes Smoking risk assessment performed?: Yes Alcohol Intake: never Drug use: Never Substance use type: does not use Caregiver/Support person: No Household members: significant other and other Details: Danika Perez is significant other Housing: house Number of Children: 2 number of grandchildren: 2 Communication Needs: Corrective Lenses Do you need help understanding health information?: Rarely current occupation: MUSICIAN Pets and animals: No Sexually active: No Do you think of yourself as: straight/heterosexual Current gender identity: male What is your relationship status?: living with partner How often do you talk on the phone with friends or family?: twice per week How often do you get together with friends or relatives?: never How often do you attend confucianist or scientologist services?: 4 or more times per year Do you belong to any clubs or organized social groups?: no Panel score (0-1 are the most socially isolated patients): 2 What type of physical activity do you participate in: walking Duration: 30-45 minutes/day Frequency: daily Olga/Cheondoism: ADVENTISM Special olga needs: No Seatbelt use: always Drive intox or ride w/intox residential recycle driver: No Do you feel safe at home: Yes Do you feel safe in your relationship?: Yes
== END 2024-08-16 14:38 | disposition home or self-care (01) ==
PROVIDERS: Emergency Provider Registered Nurse Emergency; PCP Family Medicine
DX: R22.41 Localized swelling, mass and lump, right lower limb (principal)
CPT/HCPCS: 99282

== ENCOUNTER 2024-09-07 11:57 | Outpatient (CLI) | payer MEDICARE, SELFPAY ==
[2024-09-07 11:58] LABS: Anion Gap 5.1 mmol/L (3-11); BUN 32 mg/dL (7-18); CO2 28.9 mmol/L (21.0-32.0); CREATININE 1.4 mg/dL (0.70-1.30); Calcium 9.4 mg/dL (8.5-10.1); Chloride 103 mmol/L (98-107); Estimated GFR 49.56 (mL/min/1.73m2); Glucose 122 mg/dL (74-106); Potassium 4.2 mmol/L (3.5-5.1); Sodium 137 mmol/L (136-145)
== END 2024-09-07 11:58 | disposition home or self-care (01) ==
LOC: LBO 11:58
PROVIDERS: PCP Family Medicine; Visit Provider Family Medicine
DX: I10 Essential (primary) hypertension (principal); N18.31 Chronic kidney disease, stage 3a
CPT/HCPCS: 36415; 80048

== ENCOUNTER 2024-09-08 08:28 | Outpatient (CLI) | payer MEDICARE, SELFPAY ==
--- NOTE | 2024-09-08 08:15 | DI.US_ITS ---
Exam(s) US LOWER EXTREMITY VENOUS RT EXAM: US LOWER EXTREMITY VENOUS RT CLINICAL HISTORY: Lower extremity warmth, swelling, pain,M79.89,L03.115 TECHNIQUE: Right lower extremity venous ultrasound performed using grayscale, color-flow, and spectr al Doppler analysis. COMPARISON: US US LOWER EXTREMITY VENOUS RT from 08/16/2024 FINDINGS: The right common femoral, femoral and popliteal veins demonstrate normal compressibility, augmentatio n, and color Doppler. The posterior tibial veins are patent. The saphenofemoral junction is unremark able. There is no evidence of a Price cyst. The soft tissues are unremarkable. IMPRESSION: No evidence of a right lower extremity DVT. DATA REPOSITORY:
--- NOTE | 2024-09-08 09:30 | DI.US_ITS ---
Exam(s) US SOFT TISSUE EXTREMITY EXAM: US SOFT TISSUE EXTREMITY CLINICAL HISTORY: palpable mass, medial distal aspect R22.41 SWELLING MASS RT LOWER LIMB. TECHNIQUE: Ultrasound was performed using standard protocol. COMPARISON: No exams were available for comparison FINDINGS: Sonographic assessment utilizing grayscale and color Doppler imaging was performed and targeted to th e area of clinical concern. No evidence of a soft tissue mass or fluid collection is seen in the area of concern. IMPRESSION: Negative examination. DATA REPOSITORY:
== END 2024-09-08 08:48 ==
LOC: DI 08:30
PROVIDERS: PCP Family Medicine; Visit Provider Nurse Practitioner Family
DX: M79.89 Other specified soft tissue disorders (principal); L03.115 Cellulitis of right lower limb; R22.41 Localized swelling, mass and lump, right lower limb
CPT/HCPCS: 76881; 93971

== ENCOUNTER 2024-11-03 14:02 | Outpatient (CLI) | payer MEDICARE, SELFPAY ==
[2024-11-03 13:19] LABS: Hemoglobin A1C 5.8 % (<5.7)
== END 2024-11-03 14:03 | disposition home or self-care (01) ==
LOC: LBO 14:02
PROVIDERS: PCP Family Medicine; Visit Provider Family Medicine
DX: R73.9 Hyperglycemia, unspecified (principal)
CPT/HCPCS: 36415; 83036

== ENCOUNTER 2025-04-11 13:52 | Outpatient (CLI) | payer MEDICARE, SELFPAY ==
[2025-04-11 16:21] LABS: HCT 43.7 % (40.0-50.0); HGB 14.4 g/dL (13.5-17.5); MCH 29.1 pg (27.0-33.0); MCHC 33.0 % (32.0-36.0); MCV 89 fL (80-95); MPV 11.0 fL (8.0-11.0); Platelet Count 231 10^3/uL (130-400); RBC 4.94 10^6/uL (4.36-5.78); RDW 14.3 % (11.8-14.1); RDW-SD 45.8 fL; WBC 9.25 10^3/uL (4.4-10.8)
[2025-04-11 16:37] LABS: Vitamin B12 1247 pg/mL (211-911)
== END 2025-04-11 13:53 | disposition home or self-care (01) ==
LOC: LOS 13:52
PROVIDERS: Nurse Practitioner Family; PCP Family Medicine; Visit Provider Family Medicine
DX: G62.9 Polyneuropathy, unspecified (principal)
CPT/HCPCS: 36415; 85027; 82607